=== PATIENT | male | born 1990 | race Caucasian/White ===

== ENCOUNTER 2017-05-11 18:27 | Emergency (ER) | payer MEDICAID ==
[~2017-05-11] VITALS: Ht 182.9 cm; Wt 95.3 kg
[2017-05-11 18:31] VITALS: BP 145/81
== END 2017-05-11 23:13 | disposition left against medical advice (07) ==
LOC: ER 18:32
DX: M54.2 Cervicalgia (principal); Z53.21 Procedure and treatment not carried out due to patient leaving prior to being seen by health care provider